=== PATIENT | male | born 1985 | race Asian ===

== ENCOUNTER 2022-12-31 14:35 | Emergency (ER) | payer OTHER ==
[2022-12-31] MEDS ORDERED: KETOROLAC TROMETHAMINE 15 MG/ML VIAL IM ONE (14:47)
[2022-12-31 14:48] VITALS: BP 104/72; PULSE 96; RESP 18; TEMP 97.8; BMI 20.6
[2022-12-31] MEDS ORDERED: KETOROLAC TROMETHAMINE 15 MG/ML VIAL ONE (14:51)
[2022-12-31] MEDS ORDERED: IBUPROFEN 600 MG TABLET (FP) PO ONE ×2 (14:54→14:55)
== END 2022-12-31 16:10 | disposition home or self-care (01) ==
LOC: FER 14:35
DX: S93.401A Sprain of unspecified ligament of right ankle, initial encounter (principal); X50.1XXA Overexertion from prolonged static or awkward postures, initial encounter; Y93.69 Activity, other involving other sports and athletics played as a team or group
CPT/HCPCS: 73610-TC-RT-FY; 73630-TC-RT-FY; 99283-25